=== PATIENT | male | born 1975 | race Hispanic/Latino ===

== ENCOUNTER 2016-08-12 04:05 | Emergency (ER) | payer SELFPAY ==
[~2016-08-12] VITALS: Ht 177.8 cm; Wt 79.4 kg
[~2016-08-12 04:05] MED LIST: LITHIUM CARBON150 MG ORAL; RISPERDAL1 MG PO
[2016-08-12 04:16] VITALS: BP 100/61
--- NOTE | 2016-08-12 04:16 | Emergency Room Report ---
History of Present Illness General Chief Complaint: Alcohol Intoxication Source: Patient, EMS Present Illness HPI Is a 41-year-old male who is an alcoholic. He was found sleeping at the [place]. He admits to drinking heavily. He's been here several time for the same. Denies any trauma. No suicidal thought homicidal thought. Denies any other complaint. Allergies: Coded Allergies: HALOPERIDOL (Unverified Allergy, Mild, 11/29/14) PENICILLINS (Unverified Allergy, Mild, 11/29/14) Patient History Past Medical History: see triage record, old chart reviewed Past Surgical History: none Pertinent Family History: none Social History: Reports: alcohol use Immunizations: other Reviewed Nursing Documentation: PMH: Agreed, PSxH: Agreed Nursing Documentation-PMH Past Medical History: No Stated History Review of Systems Eye: Denies: blurred vision, eye pain ENT: Denies: ear pain, nose congestion, throat swelling Respiratory: Denies: cough, shortness of breath Cardiovascular: Denies: chest pain, palpitations Gastrointestinal: Denies: abdominal pain, diarrhea, nausea, vomiting Musculoskeletal: Denies: back pain, joint pain Skin: Denies: rash Neurological: Denies: headache, numbness Endocrine: Denies: increased thirst, increased urine Hematologic/Lymphatic: Denies: easy bruising All Other Systems: negative except mentioned in HPI Physical Exam Vital Signs Date Time Temp Pulse Resp B/P Pulse Ox O2 Delivery O2 Flow Rate FiO2 08/12/16 04:05 97.0 86 18 100/61 97 Room Air vitals normal Sp02 EP Interpretation: reviewed, normal General Appearance: well appearing, no apparent distress, alert Head: normocephalic, atraumatic Eyes: bilateral eye EOMI, bilateral eye PERRL ENT: hearing grossly normal, normal pharynx Neck: full range of motion, supple, no meningismus Respiratory: chest non-tender, lungs clear, normal breath sounds Cardiovascular #1: regular rate, rhythm, no murmur Gastrointestinal: normal bowel sounds, non tender, no mass, no organomegaly, no bruit, non-distended Musculoskeletal: back normal, normal range of motion, other - Patient with multiple IV allen And tape allen on both arms. Neurologic: alert, oriented x3 Psychiatric: mood/affect normal Skin: warm/dry Medical Decision Making Diagnostic Impression: Primary Impression: Acute alcoholic intoxication Qualified Codes: F10.120 - Alcohol abuse with intoxication, uncomplicated ER Course Patient with alcohol intoxication. No trauma to warrant CT scan. He's not suicidal or homicidal. Once he is more clinically sober, we'll discharge. Patient said he doesn't want to go to a care home. Last Vital Signs Date Time Temp Pulse Resp B/P Pulse Ox O2 Delivery O2 Flow Rate FiO2 08/12/16 04:05 97.0 86 18 100/61 97 Room Air Status: improved Disposition: HOME, SELF-CARE Condition: Stable Patient Instructions: Alcohol Intoxication, [id number] Additional Instructions: Stop drinking alcohol. Followup with AA and rehabilitation. Followup with your Dr. in 3-5 days. Return if worse. SCOT BERMUDEZ M.D. Aug 12, 2016 04:16
[2016-08-12 06:20] VITALS: BP 105/68
[2016-08-12 06:25] VITALS: BP 105/68
== END 2016-08-12 06:26 | disposition home or self-care (01) ==
LOC: EDBD 04:05 → EMR 04:14
DX: F10.120 Alcohol abuse with intoxication, uncomplicated (principal); Z88.0 Allergy status to penicillin; Z88.8 Allergy status to other drugs, medicaments and biological substances
CPT/HCPCS: 99284

== ENCOUNTER 2016-12-04 17:07 | Emergency (ER) | payer MEDICAID ==
[~2016-12-04] VITALS: Ht 177.8 cm; Wt 63.5 kg
[2016-12-04 18:05] LABS: BASOPHILS % (AUTO) 1.2 % (0.0-2.0); EOSINOPHILS % (AUTO) 0.3 % (0.0-3.0); LYMPHOCYTES % (AUTO) 30.9 % (20.0-45.0); MEAN CORPUSCULAR HEMOGLOBIN 31.4 PG (27.0-31.0); MEAN CORPUSCULAR HGB CONC 33.2 G/DL (32.0-36.0); MEAN CORPUSCULAR VOLUME 95 FL (80-99); MEAN PLATELET VOLUME 6.1 FL (6.5-10.1); MONOCYTES % (AUTO) 11.1 % (1.0-10.0); NEUTROPHILS % (AUTO) 56.5 % (45.0-75.0); PLATELET COUNT 172 K/UL (150-450); RED BLOOD COUNT 4.14 M/UL (4.70-6.10); RED CELL DISTRIBUTION WIDTH 15.3 % (11.6-14.8); WHITE BLOOD COUNT 6.3 K/UL (4.8-10.8)
[2016-12-04 18:20] LABS: ACETAMINOPHEN < 10 ug/mL (10-30); ALANINE AMINOTRANSFERASE 48 U/L (3-41); ALBUMIN/GLOBULIN RATIO 1.1 (1.0-2.7); ANION GAP 24 (5-15); ASPARTATE AMINO TRANSFERASE 117 U/L (5-40); CALCIUM 8.9 mg/dL (8.6-10.2); CARBON DIOXIDE 22 mEQ/L (20-30); CHLORIDE 98 mEQ/L (98-107); CREATININE 0.8 mg/dL (0.7-1.2); GLOMERULAR FILTRATION RATE > 60 mL/min (>60); HEMOLYSIS 9; POTASSIUM 3.7 mEQ/L (3.4-4.9); SODIUM 144 mEQ/L (135-145)
[2016-12-04 18:25] LABS: ALCOHOL > 476 mg/dL
--- NOTE | 2016-12-04 18:58 | Emergency Room Report ---
History of Present Illness General Chief Complaint: Alcohol Intoxication Source: Patient (Nae Springer) Present Illness HPI 41-year-old male presents emergency department for altered mental status brought by ambulance patient was found on the bus and reports moderate EtOH use. Patient denies past medical history he denies headache despite having multiple facial abrasions. She states he cannot move his legs and he thinks he is paralyzed. History of present illness and ROS is limited due to patient cooperation and altered mental status. (Nae Springer) Allergies: Coded Allergies: HALOPERIDOL (Unverified Allergy, Mild, 11/29/14) PENICILLINS (Unverified Allergy, Mild, 11/29/14) Patient History Past Medical History: see triage record Past Surgical History: none Pertinent Family History: none Reviewed Nursing Documentation: PMH: Agreed, PSxH: Agreed (Nae Springer) Nursing Documentation-PMH Past Medical History: No Stated History (Nae Springer) Review of Systems All Other Systems: limited (Nae Springer) Physical Exam Vital Signs Date Time Temp Pulse Resp B/P Pulse Ox O2 Delivery O2 Flow Rate FiO2 12/04/16 17:03 98.1 82 16 132/81 98 Room Air Sp02 EP Interpretation: reviewed, normal General Appearance: no apparent distress, alert, GCS 15, non-toxic Head: normocephalic, other - facial abrasions noted to the chin, and left ear. Eyes: bilateral eye PERRL, bilateral eye normal inspection ENT: hearing grossly normal, normal pharynx, no angioedema, normal voice, TMs + canals normal, uvula midline, moist mucus membranes Neck: full range of motion, no bony tend, supple/symm/no masses Respiratory: chest non-tender, lungs clear, normal breath sounds Cardiovascular #1: regular rate, rhythm, no edema, normal capillary refill Gastrointestinal: non tender, soft, no guarding, no rebound Rectal: deferred Musculoskeletal: back normal, normal range of motion, non-tender, other - abrasion to the right side of the lower back Neurologic: alert, oriented x3, responsive, motor strength/tone normal, DTRs symmetric, sensory intact, other - motor exam is grossly normal, pt. has full motor strength to bilateral LE's, sensation is intact. slurred speech. Psychiatric: mood/affect normal, other - Pt is Altered and psychiatric eval is limited at this time Skin: normal color, no rash, warm/dry, well hydrated, abrasions - abrasions to chin, left ear, right lower back (Nae Springer) Medical Decision Making PA Attestation Dr. santana is my supervising Physician whom patient management has been discussed with. (Nae Springer) Diagnostic Impression: Primary Impression: Abrasion Additional Impressions: Alcohol abuse Acute alcoholic intoxication Qualified Codes: F10.920 - Alcohol use, unspecified with intoxication, uncomplicated ER Course 41-year-old male presents emergency department for altered mental status brought by ambulance patient was found on the bus and reports moderate EtOH use. Patient denies past medical history he denies headache despite having multiple facial abrasions. She states he cannot move his legs and he thinks he is paralyzed. History of present illness and ROS is limited due to patient cooperation and altered mental status. . Ddx considered but are not limited to ETOH, Trauma, Syncope, dementia, OD, Spinal Chord injury Vital signs: are WNL, pt. is afebrile H&PE are most consistent with ETOH abuse and abrasions- PT. has Full motor strength in bilateral LE , with FROM. ORDERS: - CT Head No Contrast: No evidence of acute fracture, hemorrhage, or intracranial process Per: Radiology report - CBC: unremarkable -CMP: AST elevated 117, ALT elevated 48 - Serum ETOH : 476 - salicylates & Acetaminophen: WNL ED INTERVENTIONS: - wound care, bacitracin applied to facial abrasion. -1000cc NS Observance while he detoxifies. Pt. was allowed to sleep/rest. DISPOSITION : pt. signed out to for continued observation until clinically sober. Labs Test 12/04/16 17:29 White Blood Count 6.3 K/UL (4.8-10.8) Red Blood Count 4.14 M/UL (4.70-6.10) Hemoglobin 13.0 G/DL (14.2-18.0) Hematocrit 39.1 % (42.0-52.0) Mean Corpuscular Volume 95 FL (80-99) Mean Corpuscular Hemoglobin 31.4 PG (27.0-31.0) Mean Corpuscular Hemoglobin Concent 33.2 G/DL (32.0-36.0) Red Cell Distribution Width 15.3 % (11.6-14.8) Platelet Count 172 K/UL (150-450) Mean Platelet Volume 6.1 FL (6.5-10.1) Neutrophils (%) (Auto) 56.5 % (45.0-75.0) Lymphocytes (%) (Auto) 30.9 % (20.0-45.0) Monocytes (%) (Auto) 11.1 % (1.0-10.0) Eosinophils (%) (Auto) 0.3 % (0.0-3.0) Basophils (%) (Auto) 1.2 % (0.0-2.0) Sodium Level 144 mEQ/L (135-145) Potassium Level 3.7 mEQ/L (3.4-4.9) Chloride Level 98 mEQ/L (98-107) Carbon Dioxide Level 22 mEQ/L (20-30) Anion Gap 24 (5-15) Blood Urea Nitrogen 13 mg/dL (7-23) Creatinine 0.8 mg/dL (0.7-1.2) Estimat Glomerular Filtration Rate > 60 mL/min (>60) Glucose Level 92 mg/dL (74-106) Calcium Level 8.9 mg/dL (8.6-10.2) Total Bilirubin 0.4 mg/dL (0.0-1.2) Aspartate Amino Transf (AST/SGOT) 117 U/L (5-40) Alanine Aminotransferase (ALT/SGPT) 48 U/L (3-41) Alkaline Phosphatase 107 U/L (40-129) Total Protein 8.0 g/dL (6.6-8.7) Albumin 4.2 g/dL (3.5-5.2) Globulin 3.8 g/dL Albumin/Globulin Ratio 1.1 (1.0-2.7) Salicylates Level < 1 mg/dL (10-30) Acetaminophen Level < 10 ug/mL (10-30) Serum Alcohol > 476 mg/dL (Nae Springer P.A.) ER Course Patient presents with alcohol intoxication. He was signed out to me. He slept through the night. Now is awake and walking to the bathroom without any difficulty. No slurred speech. We'll discharge home. No criteria for 5150. (SCOT YOUNG M.D.) Last Vital Signs Date Time Temp Pulse Resp B/P Pulse Ox O2 Delivery O2 Flow Rate FiO2 12/04/16 17:03 98.1 82 16 132/81 98 Room Air (Nae Springer) Status: improved (SCOT YOUNG M.D.) Disposition: HOME, SELF-CARE Condition: Stable Signed Out To: Dr. Young (Nae Springer) Referrals: NOT CHOSEN IPA/,REFERRING (PCP) Patient Instructions: Alcohol Intoxication, [id number] Additional Instructions: Abstain from drugs and alcohol. Followup with your DrBijan in 7 days. Return if worse. Nae Springer Dec 04, 2016 18:58 SCOT YOUNG M.D. Dec 05, 2016 01:00
[2016-12-04 20:00] VITALS: BP 127/87
[2016-12-05 01:07] VITALS: BP 125/72
[2016-12-05 01:10] VITALS: BP 125/72
== END 2016-12-05 01:10 | disposition home or self-care (01) ==
LOC: EDBD 17:07 → EMR 17:58
DX: S00.81XA Abrasion of other part of head, initial encounter (principal); S00.412A Abrasion of left ear, initial encounter; X58.XXXA Exposure to other specified factors, initial encounter; Y92.811 Bus as the place of occurrence of the external cause; Z88.0 Allergy status to penicillin; Z88.8 Allergy status to other drugs, medicaments and biological substances; F10.129 Alcohol abuse with intoxication, unspecified; R41.82 Altered mental status, unspecified
CPT/HCPCS: 36415; 70450; 80053; 80329; 85025; 96360; 96361